=== PATIENT | male | born 1980 | race Caucasian/White ===

== ENCOUNTER 2016-07-30 21:31 | Emergency (ER) | payer OTHER ==
[~2016-07-30] VITALS: Ht 165.1 cm; Wt 81.0 kg
[~2016-07-30 21:31] MED LIST: CARDIZEM CD240 MG PO; COUMADIN,JANTOV10 MG PO; COUMADIN3 MG PO; Coumadin PO; LORTAB 5-325 M1 EACH PO; PERCOCET 5/31 TABLET PO; TORADOL10 MG PO
[2016-07-30 23:04] LABS: HEMATOCRIT 45.5 % (38.0-50.0); MCH 30.4 PG (29.0-34.0); MCHC 33.6 G/DL (30.0-36.0); MCV 90.3 FL (86-99); MEAN PLAT.VOLUME 10.1 uM^3 (9.0-12.4); PLATELET COUNT 201 K/uL (156-360); RED BLOOD COUNT 5.04 M/uL (4.00-5.50); WHITE BLOOD COUNT 5.5 K/uL (4.1-10.2)
[2016-07-30 23:17] LABS: INTER. NORMALIZED RATIO 2.6; PROTHROMBIN TIME 27.4 (9.2-11.2)
[2016-07-30 23:21] LABS: CHLORIDE 107 mEq/L (99-109); SODIUM 141 mEq/L (136-147)
[2016-07-30 23:23] LABS: GLUCOSE 121 mg/dL (70-99)
[2016-07-30 23:25] LABS: ANION GAP 10 MEQ/L (2-14); TOTAL BILIRUBIN 0.4 mg/dL (0.0-1.0)
[2016-07-30 23:27] LABS: ALKALINE PHOSPHATASE 68 IU/L (3-129); GFR ESTIMATE (CALCULATED) > 59 mL/min/
[2016-07-30 23:28] LABS: TROP-I INTERPRETATION NEGATIVE; TROPONIN-I < 0.01 ng/mL (0.0-0.30); UREA NITROGEN (BUN) 12 mg/dL (9-23)
[2016-07-31] MEDS ORDERED: PERCOCET 5/31 TABLET PO (00:39)
[2016-07-31 00:56] VITALS: BP 124/92
== END 2016-07-31 00:58 | disposition home or self-care (01) ==
LOC: EXP 21:31 → EME 21:31 → EXP 07-31 00:58
PROVIDERS: Physician Assistant
DX: M54.9 Dorsalgia, unspecified (principal); R07.9 Chest pain, unspecified; S20.222A Contusion of left back wall of thorax, initial encounter; W21.03XA Struck by baseball, initial encounter; Y93.64 Activity, baseball; Y92.320 Baseball field as the place of occurrence of the external cause; I10 Essential (primary) hypertension
CPT/HCPCS: 71275; 80053; 84484; 85027; 85610; 93005; 99281; 99284